=== PATIENT | male | born 1990 | race Hispanic/Latino ===

== ENCOUNTER 2020-11-14 14:36 | Emergency (ER) | payer SELFPAY ==
--- NOTE | 2020-11-14 17:39 | ER ---
Nurse's Notes [facility] Name: Arun Pickard Age: 30 yrs Sex: Male : 1990 Arrival Date: 11/14/2020 Time: 14:39 Bed 2 Private MD: Diagnosis: Coronavirus infection, unspecified Presentation: 11/14 15:17 Chief complaint: Patient states: "I have been having fever and sore throat. I am having jd3 both my eyes hurt when I close them.". Coronavirus screen: At this time, the client does not indicate any symptoms associated with coronavirus-19. Ebola Screen: Patient negative for fever greater than or equal to 101.5 degrees Fahrenheit, and additional compatible Ebola Virus Disease symptoms. Initial Sepsis Screen: Does the patient meet any 2 criteria? No. Patient's initial sepsis screen is negative. Does the patient have a suspected source of infection? No. Patient's initial sepsis screen is negative. Risk Assessment: Do you want to hurt yourself or someone else? Patient reports no desire to harm self or others. Note Tylenol taken today at 0800. Onset of symptoms was November 07, 2020. 15:17 Method Of Arrival: Ambulatory j 15:17 Acuity: MICHELE 3 jd3 Historical: - Allergies: 15:20 PENICILLINS; jd3 - Home Meds: 15:20 None [Active]; jd3 - PMHx: 15:20 None; jd3 - PSHx: 15:20 None; jd3 - Immunization history:: Adult Immunizations up to date, Client reports having NOT received the Covid vaccine. - Social history:: Smoking status: Patient denies any tobacco usage or history of. - Family history:: not pertinent. - Hospitalizations: : No recent hospitalization is reported. Vital Signs: 15:20 BP 138 / 79; Pulse 113; Resp 18 S; Temp 100.3(TE); Pulse Ox 100% on R/A; Weight 95.71 jd3 kg (R); Height 5 ft. 8 in. (172.72 cm) (R); Pain 9/10; 15:20 Body Mass Index 32.08 (95.71 kg, 172.72 cm) jd3 ED Course: 14:39 Patient arrived in ED. mr 15:19 Triage completed. jd3 15:21 Arm band placed on. jd3 16:24 Felix Obrien MD is Attending Physician. rn 16:25 Deb Her, KAREN is Primary Nurse. hb Administered Medications: 18:05 Drug: SOLU-Medrol (methylPrednisoLONE) 125 mg Route: IVP; Site: left upper arm; hb Outcome: 17:39 Discharge ordered by . rn 18:27 Patient left the ED. Signatures: Mathew Alyssia mr Felix Obrien MD MD rn Deb Her RN RN Rui Coats RN RN jwood
--- NOTE | 2020-11-14 17:40 | EDPHYS ---
Physician Documentation [facility] Name: Arun Pickard Age: 30 yrs Sex: Male : 1990 Arrival Date: 11/14/2020 Time: 14:39 Bed 2 Private MD: ED Physician Felix Obrien HPI: 11/14 17:04 This 30 yrs old Male presents to ER via Ambulatory with complaints of rn Headache, congestion, Sore Throat, Eye Pain. 17:04 The patient or guardian reports cough, flu symptoms. Onset: The symptoms/episode rn began/occurred 1 week(s) ago. Severity of symptoms: At their worst the symptoms were mild, in the emergency department the symptoms are unchanged. Modifying factors: The symptoms are alleviated by nothing, the symptoms are aggravated by nothing. Associated signs and symptoms: Pertinent positives: fever, rhinorrhea, sore throat, Pertinent negatives: diarrhea. The patient has not experienced similar symptoms in the past. The patient has not recently seen a physician. Reports fever, congestion, dry cough, loss of smell, and muscle aches for 1 week. Non-smoker, not vaccinated. . Historical: - Allergies: 15:20 PENICILLINS; jd3 - Home Meds: 15:20 None [Active]; jd3 - PMHx: 15:20 None; jd3 - PSHx: 15:20 None; jd3 - Immunization history:: Adult Immunizations up to date, Client reports having NOT received the Covid vaccine. - Social history:: Smoking status: Patient denies any tobacco usage or history of. - Family history:: not pertinent. - Hospitalizations: : No recent hospitalization is reported. ROS: 17:04 Constitutional: + fever Eyes: Negative for injury, pain, redness, and discharge, ENT: + rn congestion Neck: Negative for injury, pain, and swelling, Cardiovascular: Negative for chest pain, palpitations, and edema, Respiratory: + dry cough, neg for sob Abdomen/GI: Negative for abdominal pain, nausea, vomiting, diarrhea, and constipation, Back: Negative for injury and pain, : Negative for injury, bleeding, discharge, and swelling, MS/Extremity: Negative for injury and deformity, Skin: Negative for injury, rash, and discoloration, Neuro: Negative for numbness, tingling, and seizure. Exam: 17:04 Constitutional: This is a well developed, well nourished patient who is awake, alert, rn and in no acute distress. Ambulatory to room without difficulty Head/Face: Normocephalic, atraumatic. Eyes: Periorbital areas with no swelling, redness, or edema. ENT: No stridor Neck: Trachea midline, no masses palpated, and no cervical lymphadenopathy. Supple, full range of motion without nuchal rigidity, or vertebral point tenderness. No Meningismus. Cardiovascular: Regular rate and rhythm. No pulse deficits. Respiratory: No increased work of breathing, no retractions or nasal flaring. Skin: Warm, dry with normal turgor. Normal color with no rashes, no lesions, and no evidence of cellulitis. MS/ Extremity: Pulses equal, no cyanosis. Neurovascular intact. Full, normal range of motion. Equal circumference. Neuro: Awake and alert, GCS 15, oriented to person, place, time, and situation. Cranial nerves II-XII grossly intact. Motor strength 5/5 in all extremities. Sensory grossly intact. Cerebellar exam normal. Normal gait. Vital Signs: 15:20 BP 138 / 79; Pulse 113; Resp 18 S; Temp 100.3(TE); Pulse Ox 100% on R/A; Weight 95.71 jd3 kg (R); Height 5 ft. 8 in. (172.72 cm) (R); Pain 9/10; 15:20 Body Mass Index 32.08 (95.71 kg, 172.72 cm) jd3 MDM: 16:24 Patient medically screened. rn 17:38 Differential Diagnosis: Influenza Upper Respiratory Infection Viral Syndrome. Data rn reviewed: vital signs, nurses notes, lab test result(s), and as a result, I will discharge patient. Counseling: I had a detailed discussion with the patient and/or guardian regarding: the historical points, exam findings, and any diagnostic results supporting the discharge/admit diagnosis, lab results, the need for outpatient follow up, to return to the emergency department if symptoms worsen or persist or if there are any questions or concerns that arise at home. Special discussion: I discussed with the patient/guardian in detail that at this point there is no indication for admission to the hospital. It is understood, however, that if the symptoms persist or worsen the patient needs to return immediately for re-evaluation. ED course: COVID +, will give steroids and dc home, recommend his call her OB given she is for further recs, currently asymptomatic per .. 11/14 15:22 Order name: Flu; Complete Time: 17:23 jd3 11/14 15:22 Order name: Strep; Complete Time: 17:23 jd3 11/14 16:54 Order name: Throat Culture EDSD 11/14 17:34 Order name: SARS-COV-2 RT PCR EDSD Administered Medications: 18:05 Drug: SOLU-Medrol (methylPrednisoLONE) 125 mg Route: IVP; Site: left upper arm; hb Disposition: 11/14/20 17:39 Discharged to Home. Impression: Coronavirus infection, unspecified. - Condition is Stable. - Discharge Instructions: Viral Respiratory Infection, [id number], COVID-19. - Prescriptions for Prednisone 20 mg Oral Tablet - take 1 tablet by ORAL route as directed for 14 days Take 2 tablets by mouth daily for 7 days, followed by 1 tablet by mouth daily for 7 days, total of 14 days.; 21 tablet. - Medication Reconciliation Form, Thank You Letter, Antibiotic Education, Prescription Opioid Use form. - Follow up: Private Physician; When: As needed; Reason: Recheck today's complaints, Re-evaluation by your physician. - Problem is new. - Symptoms are unchanged. Signatures: Dispatcher [employer] [facility] Felix Obrien MD MD rn Baxter, Heather, RN RN hb Davies, Jonathon RN RN jd3 Corrections: (The following items were deleted from the chart) 16:20 15:22 CORONAVIRUS+MR.LAB.BRZ ordered. [facility] 18:27 17:39 11/14/2020 17:39 Discharged to Home. Impression: Coronavirus infection, hb unspecified. Condition is Stable. Forms are Medication Reconciliation Form, Thank You Letter, Antibiotic Education, Prescription Opioid Use. Follow up: Private Physician; When: As needed; Reason: Recheck today's complaints, Re-evaluation by your physician. Problem is new. Symptoms are unchanged. rn
[2020-11-14] MEDS ORDERED: METHYLPREDNISOLONE 125 MG INJ ONE (18:25)
[2020-11-14 18:35] VITALS: BP 138/79; TEMP 100.3; O2SAT 100
== END 2020-11-14 18:27 | disposition home or self-care (01) ==
LOC: ER 14:36
DX: U07.1 COVID-19 (principal); Z88.0 Allergy status to penicillin
CPT/HCPCS: 87070; 87081; 87804; 96374; 99282; J2930; U0003